=== PATIENT | male | born 1970 | race Hispanic/Latino ===

== ENCOUNTER → 2017-07-07 14:27 | Emergency (ER) | payer SELFPAY | LOC: BURERS 14:27 | DX: Z53.21 Procedure and treatment not carried out due to patient leaving prior to being seen by health care provider (principal) ==

== ENCOUNTER 2018-05-01 07:01 | Emergency (ER) | payer SELFPAY | END 2018-05-01 07:54 | disposition home or self-care (01) | LOC: BURERS 07:01 | DX: M79.601 Pain in right arm (principal); F17.210 Nicotine dependence, cigarettes, uncomplicated | CPT/HCPCS: 99283 ==

== ENCOUNTER 2020-04-05 20:52 | Emergency (ER) | payer SELFPAY ==
[2020-04-05] MEDS ORDERED: Lidocaine 1% w/Epinephrine 1:100K 20 ML VIAL ONE (21:07)
[2020-04-05] MEDS ORDERED: Amoxicillin/Potassium Clav 875 MG TAB ONE (21:08)
[2020-04-05] MEDS ORDERED: Bacitracin 1 PK ONE (21:15)
== END 2020-04-05 21:19 | disposition home or self-care (01) ==
LOC: BURERS 20:52
DX: S51.811A Laceration without foreign body of right forearm, initial encounter (principal); F17.210 Nicotine dependence, cigarettes, uncomplicated; W54.0XXA Bitten by dog, initial encounter
CPT/HCPCS: 12002

== ENCOUNTER 2020-08-11 13:08 | Emergency (ER) | payer SELFPAY ==
[2020-08-11] MEDS ORDERED: Ketorolac Tromethamine 30 MG/ML VIAL ONE (14:45)
[2020-08-11] MEDS ORDERED: Cyclobenzaprine 10 MG TAB ONE (14:45)
--- NOTE | 2020-08-11 15:09 | RAD ---
RIGHT SHOULDER THREE VIEWS: 08/11/20 No fracture, dislocation, or AC joint widening was seen. There is a minor amount of bony spurring on the undersurface of the AC joint. IMPRESSION: No acute bony findings. POS: HOME
--- NOTE | 2020-08-11 15:13 | RAD ---
RIGHT ELBOW 4 VIEWS: DATE: 08/11/2020. FINDINGS: No fracture or joint effusion was seen. Some minimal bony spurring was seen on the tip of the corono id process. IMPRESSION: No acute bony findings. POS: HOME
== END 2020-08-11 15:20 | disposition home or self-care (01) ==
LOC: BURERS 13:08
DX: M75.101 Unspecified rotator cuff tear or rupture of right shoulder, not specified as traumatic (principal); F17.210 Nicotine dependence, cigarettes, uncomplicated
CPT/HCPCS: 96372; J1885

== ENCOUNTER 2022-02-09 11:23 | Emergency (ER) | payer OTHER, SELFPAY | END 2022-02-09 11:56 | disposition home or self-care (01) | LOC: BURERS 11:23 | DX: S61.412A Laceration without foreign body of left hand, initial encounter (principal); F17.210 Nicotine dependence, cigarettes, uncomplicated; W25.XXXA Contact with sharp glass, initial encounter | CPT/HCPCS: 12001 ==